=== PATIENT | male | born 1985 | race Caucasian/White ===

== ENCOUNTER 2017-03-15 00:59 | Emergency (ER) | payer OTHER ==
[2017-03-15 02:36] LABS: BASOPHIL 0.4 % (0-2); EOSINOPHIL 3.4 % (0-5); HCT 43.4 % (42.0-52.0); HGB 15.2 g/dl (13.2-18.0); LYMPHOCYTE 21.5 % (15-48); MCH 30.7 pg (25.0-31.0); MCV 87.7 fL (78.0-100.0); MONOCYTE 7.8 % (0-12); MPV 8.8 fL (6.0-9.5); NEUTROPHIL 66.9 % (41-80); PLT 242 K/uL (150-400); RBC 4.95 M/uL (4.70-6.00); RDW 13.6 % (11.5-14.0); WBC 12.7 K/uL (4.0-10.5)
[2017-03-15 02:56] LABS: ALBUMIN 4.4 g/dL (3.5-5.0); BILIRUBIN - TOTAL 0.4 mg/dL (0.1-1.0); CREATININE 0.9 mg/dL (0.7-1.2); GLOBULIN (CALCULATION) 2.7 g/dL (2.2-4.2); POTASSIUM 4.1 mmol/L (3.5-5.1); TOTAL PROTEIN 7.1 g/dL (6.4-8.3)
== END 2017-03-15 03:24 | disposition home or self-care (01) ==
LOC: FER 00:59
PROVIDERS: Emergency Medicine
DX: K27.9 Peptic ulcer, site unspecified, unspecified as acute or chronic, without hemorrhage or perforation (principal); B96.81 Helicobacter pylori [H. pylori] as the cause of diseases classified elsewhere; F17.210 Nicotine dependence, cigarettes, uncomplicated; Z87.19 Personal history of other diseases of the digestive system; Z79.899 Other long term (current) drug therapy
CPT/HCPCS: 36415; 74022; 80053; 83690; 85025; 87339; J2405